=== PATIENT | male | born 1965 | race African-American/Black ===

== ENCOUNTER 2018-11-04 20:03 | Inpatient (IN) ==
[2018-11-04] MEDS ORDERED: VANCOMYCIN INJ 1,000 MG in SODIUM CHLORIDE 0.9% 250 ML IV STA (21:42)
[2018-11-04 22:19] LABS: Basophils % 0.3 % (0.0-0.8); Eosinophils # 0.2 10*3/uL (0.0-0.87); Eosinophils % 3.1 % (0.00-10.9); Hemoglobin 12.5 GM/DL (14.0-18.0); Immature Granulocytes % 0.5 %; Immature Granulocytes Absolute 0.03 #; Lymphocytes # 1.9 10*3/uL (1.4-4.0); Mean Corpuscular HGB Conc 31.3 GM/DL (32-36); Mean Corpuscular Volume 87.5 FL (87-102); Mean Platelet Volume 9.3 FL (9.6-12.0); Monocytes % 15.4 % (1.7-12.7); Neutrophils % 47.7 % (38.7-73.9); Platelet Count 288 T/CUMM (130-400); Red Blood Count 4.57 MC/CUMM (3.8-5.5); Red Cell Distribution Width 13.5 % (9.3-17.3); White Blood Count 5.8 T/CUMM (4-12)
[2018-11-04 22:35] LABS: PT Patient Result 10.8 SECS
[2018-11-04 22:45] LABS: Alanine Aminotransferase 33 U/L (16-61); Albumin 3.7 G/DL (3.4-5.0); Alkaline Phosphatase 112 U/L (45-117); Aspartate Amino Transferase 23 U/L (0-37); Blood Urea Nitrogen 11 MG/DL (7-18); CKMB % 1.5 %; Calcium 8.8 MG/DL (8.5-10.1); Glucose 325 MG/DL (74-106); Osmolality,Calculated 288.5 MOS/KG (273-304); Total Protein 8.2 G/DL (6.4-8.3); Troponin I < 0.015 NG/ML (0.00-0.045)
[2018-11-04 23:02] LABS: Apearance,Urine CLEAR (Clear); Bilirubin,Urine Negative (Negative); Blood, Urine Negative (Negative); Glucose,Urine (UA) >=500 mg/dL (Negative); Ketones,Urine Negative (Negative); Mucus,Urine Occasional /LPF (Occasional); Nitrite,Urine Negative (Negative); Protein,Urine Negative; RBC,Urine 1 /HPF (0-4); Urine Color Yellow (Yellow); Urine Specific Gravity 1.032 (1.001-1.035); Urine Urobilinogen < 2.0 EU/DL (0.2-1.0); WBC,Urine <1 /HPF (0-6)
[2018-11-04 23:19] LABS: Sedimentation Rate-Westergren 38 MM/HR (0-20)
[2018-11-04] MEDS ORDERED: diphenhydrAMINE CAP 25 MG CAPSULE PO PRN (23:42)
[2018-11-04] MEDS ORDERED: DEXTROSE 50% 25 GM/50 ML VIAL IV PRN (23:42)
[2018-11-04] MEDS ORDERED: NICOTINE 21 MG/24 HR PATCH TRANSDERM PRN (23:42)
[2018-11-04] MEDS ORDERED: LACTULOSE 20 GM/30 ML UDCUP PO PRN (23:42)
[2018-11-04] MEDS ORDERED: PROMETHAZINE 25 MG/1 ML VIAL IM PRN (23:42)
[2018-11-04] MEDS ORDERED: GLUCAGON 1 MG VIAL IM PRN (23:42)
[2018-11-04] MEDS ORDERED: ONDANSETRON 4 MG/2 ML VIAL IV PRN (23:42)
[2018-11-04] MEDS ORDERED: MORPHINE 4 MG/1 ML VIAL IV PRN (23:42)
[2018-11-04] MEDS ORDERED: ACETAMINOPHEN 325 MG TABLET PO PRN (23:42)
[2018-11-05] MEDS: SODIUM CHLORIDE 0.9% 1,000 ML IV SCH ×3 (01:23→20:51)
[2018-11-05] MEDS: PIPERACILLIN/TAZOBACTAM 3,375 MG in SODIUM CHLORIDE 0.9% 100 ML IV SCH ×3 (01:23→20:52)
[2018-11-05] MEDS: INSULIN REGULAR 100 UNIT/ML SUBCUT SCH ×4 (01:56→17:39)
[2018-11-05] MEDS ORDERED: LISINOPRIL/HCTZ 20-12.5 MG TABLET PO ONE (02:14)
[2018-11-05 06:02] LABS: Basophils % 0.8 % (0.0-0.8); Eosinophils # 0.2 10*3/uL (0.0-0.87); Eosinophils % 3.3 % (0.00-10.9); Hematocrit 38.9 VOL% (42.0-52.0); Hemoglobin 12.2 GM/DL (14.0-18.0); Immature Granulocytes % 0.4 %; Immature Granulocytes Absolute 0.02 #; Lymphocytes % 40.8 % (21.2-54.2); Mean Corpuscular HGB Conc 31.4 GM/DL (32-36); Mean Platelet Volume 9.5 FL (9.6-12.0); Monocytes % 13.1 % (1.7-12.7); Neutrophils % 41.6 % (38.7-73.9); Platelet Count 272 T/CUMM (130-400); Red Blood Count 4.47 MC/CUMM (3.8-5.5); Red Cell Distribution Width 13.4 % (9.3-17.3); White Blood Count 4.9 T/CUMM (4-12)
[2018-11-05 06:24] LABS: Eosinophils 4 % (0-10); Hypochromasia 1+; Lymphocytes 43 % (20-55); Platelet Estimate Adequate; Segmented Neutrophils 46 % (50-85); Total Cells Counted 100
[2018-11-05 06:32] LABS: Albumin 3.2 G/DL (3.4-5.0); Bilirubin,Total 0.5 MG/DL (0.2-1.0); Calcium 8.4 MG/DL (8.5-10.1); Osmolality,Calculated 283.3 MOS/KG (273-304); Total Protein 7.2 G/DL (6.4-8.3)
[2018-11-05] MEDS: VANCOMYCIN INJ 1,250 MG in SODIUM CHLORIDE 0.9% 250 ML IV SCH ×2 (06:35→17:27)
[2018-11-05] MEDS: INSULIN LISPRO 100 UNIT/ML SUBCUT SCH ×4 (07:54→20:52)
[2018-11-05] MEDS ORDERED: LISINOPRIL/HCTZ 20-12.5 MG TABLET PO SCH ×2 (09:00→21:30)
[2018-11-05] MEDS ORDERED: ENOXAPARIN 40 MG/0.4 ML SYRINGE SUBCUT SCH (09:00)
[2018-11-05] MEDS ORDERED: LIDOCAINE 1% 20 ML VIAL ONE (10:20)
[2018-11-05] MEDS ORDERED: fentaNYL 100 MCG/2 ML VIAL ONE (11:54)
[2018-11-05] MEDS ORDERED: PROPOFOL 200 MG/20 ML VIAL IV ONE (11:54)
[2018-11-05] MEDS ORDERED: MIDAZOLAM 2 MG/2 ML VIAL ONE (11:55)
[2018-11-05] MEDS ORDERED: SODIUM CHLORIDE 0.9% 100 ML IV ONE (11:55)
[2018-11-05] MEDS: PANTOPRAZOLE 40 MG TABLET PO SCH (12:41)
[2018-11-05] MEDS: POTASSIUM CHLORIDE 20 MEQ TABLET PO PRN ×3 (14:05→18:46)
[2018-11-05] MEDS ORDERED: INSULIN GLARGINE 100 UNIT/ML SUBCUT SCH (21:00)
[2018-11-06] MEDS: INSULIN REGULAR 100 UNIT/ML SUBCUT SCH ×3 (00:18→12:17)
[2018-11-06] MEDS: PIPERACILLIN/TAZOBACTAM 3,375 MG in SODIUM CHLORIDE 0.9% 100 ML IV SCH ×2 (04:05→12:17)
[2018-11-06 05:19] LABS: Basophils % 0.8 % (0.0-0.8); Eosinophils # 0.2 10*3/uL (0.0-0.87); Eosinophils % 3.9 % (0.00-10.9); Hematocrit 38.7 VOL% (42.0-52.0); Hemoglobin 12.3 GM/DL (14.0-18.0); Immature Granulocytes % 0.4 %; Immature Granulocytes Absolute 0.02 #; Lymphocytes # 2.3 10*3/uL (1.4-4.0); Lymphocytes % 43.8 % (21.2-54.2); Mean Corpuscular HGB Conc 31.8 GM/DL (32-36); Mean Corpuscular Volume 86.8 FL (87-102); Mean Platelet Volume 9.5 FL (9.6-12.0); Monocytes % 11.2 % (1.7-12.7); Neutrophils % 39.9 % (38.7-73.9); Platelet Count 293 T/CUMM (130-400); Red Blood Count 4.46 MC/CUMM (3.8-5.5); Red Cell Distribution Width 13.6 % (9.3-17.3); White Blood Count 5.2 T/CUMM (4-12)
[2018-11-06 05:42] LABS: Hypochromasia 1+; Platelet Estimate Adequate
[2018-11-06 05:55] LABS: Osmolality,Calculated 282.3 MOS/KG (273-304)
[2018-11-06] MEDS ORDERED: SODIUM HYPOCHLORITE 0.25% IRRIG 473 ML BOTTLE TOP SCH (10:30)
[2018-11-06 11:35] VITALS: BP 165/99
[2018-11-06] MEDS: PANTOPRAZOLE 40 MG TABLET PO SCH (12:16)
[2018-11-06] MEDS: INSULIN LISPRO 100 UNIT/ML SUBCUT SCH (12:16)
[2018-11-06] MEDS: SODIUM CHLORIDE 0.9% 1,000 ML IV SCH (12:16)
[2018-11-06] MEDS: VANCOMYCIN INJ 1,250 MG in SODIUM CHLORIDE 0.9% 250 ML IV SCH (12:16)
== END 2018-11-06 13:30 | disposition home or self-care (01) | DRG 464 ==
LOC: N.ED 20:03 → N.EDINP 23:42 → N.2E 11-05 00:50 → N.3E 11-06 02:15
PROVIDERS: ADMIT Internal Medicine Cardiovascular Disease; ATTEND Internal Medicine Cardiovascular Disease

== ENCOUNTER 2020-07-19 18:58 | Inpatient (IN) ==
[2020-07-19] MEDS ORDERED: SODIUM CHLORIDE 0.9% 1,000 ML IV STA (19:44)
[2020-07-19] MEDS ORDERED: PIPERACILLIN/TAZOBACTAM 3,375 MG in SODIUM CHLORIDE 0.9% 100 ML IV STA (19:44)
[2020-07-19] MEDS ORDERED: ONDANSETRON 4 MG/2 ML VIAL IV STA (19:44)
[2020-07-19] MEDS ORDERED: MORPHINE 4 MG/1 ML VIAL IV ONE (19:44)
[2020-07-19 20:53] LABS: Basophils % 0.1 % (0.0-0.8); Eosinophils # 0.1 10*3/uL (0.0-0.87); Hematocrit 38.2 VOL% (42.0-52.0); Hemoglobin 12.3 GM/DL (14.0-18.0); Immature Granulocytes % 0.3 %; Immature Granulocytes Absolute 0.03 #; Lymphocytes # 1.1 10*3/uL (1.4-4.0); Lymphocytes % 11.9 % (21.2-54.2); Mean Corpuscular HGB Conc 32.2 GM/DL (32-36); Mean Corpuscular Volume 83.6 FL (87-102); Monocytes % 9.8 % (1.7-12.7); Neutrophils % 76.9 % (38.7-73.9); Platelet Count 342 T/CUMM (130-400); Red Blood Count 4.57 MC/CUMM (3.8-5.5); Red Cell Distribution Width 14.3 % (9.3-17.3); White Blood Count 9.2 T/CUMM (4-12)
[2020-07-19 21:11] LABS: Calcium 8.9 MG/DL (8.5-10.1); Osmolality,Calculated 278.8 MOS/KG (273-304); Potassium 3.8 MMOL/L (3.5-5.1)
[2020-07-19] MEDS ORDERED: DEXTROSE 50% 25 GM/50 ML VIAL IV PRN ×2 (22:23)
[2020-07-19] MEDS ORDERED: GLUCAGON 1 MG VIAL IM PRN ×2 (22:23)
[2020-07-19] MEDS ORDERED: ONDANSETRON 4 MG/2 ML VIAL IV PRN (22:23)
[2020-07-20] MEDS: PIPERACILLIN/TAZOBACTAM 3,375 MG in SODIUM CHLORIDE 0.9% 100 ML IV SCH ×3 (04:16→15:39)
[2020-07-20] MEDS: MORPHINE 4 MG/1 ML VIAL IV PRN ×2 (06:25→15:12)
[2020-07-20] MEDS ORDERED: BUPIVACAINE MPF 0.25% 30 ML VIAL ONE (06:28)
[2020-07-20] MEDS ORDERED: LIDOCAINE 1% 20 ML VIAL ONE (06:28)
[2020-07-20] MEDS ORDERED: DEXMEDETOMIDINE 200 MCG/2 ML VIAL ONE (06:54)
[2020-07-20] MEDS ORDERED: ceFAZolin 1,000 MG in SYRINGE 1 EACH IV ONE (07:07)
[2020-07-20] MEDS: INSULIN REGULAR 100 UNIT/ML SUBCUT SCH ×4 (07:42→21:46)
[2020-07-20 07:44] LABS: Basophils % 0.4 % (0.0-0.8); Eosinophils # 0.1 10*3/uL (0.0-0.87); Eosinophils % 0.7 % (0.00-10.9); Hematocrit 34.3 VOL% (42.0-52.0); Hemoglobin 10.8 GM/DL (14.0-18.0); Immature Granulocytes % 0.2 %; Immature Granulocytes Absolute 0.02 #; Lymphocytes # 1.7 10*3/uL (1.4-4.0); Lymphocytes % 20.7 % (21.2-54.2); Mean Corpuscular HGB Conc 31.5 GM/DL (32-36); Mean Corpuscular Volume 84.7 FL (87-102); Mean Platelet Volume 8.7 FL (9.6-12.0); Monocytes % 13.1 % (1.7-12.7); Neutrophils % 64.9 % (38.7-73.9); Platelet Count 287 T/CUMM (130-400); Red Blood Count 4.05 MC/CUMM (3.8-5.5); Red Cell Distribution Width 14.5 % (9.3-17.3); White Blood Count 8.4 T/CUMM (4-12)
[2020-07-20 07:58] LABS: Calcium 8.2 MG/DL (8.5-10.1); Osmolality,Calculated 279.4 MOS/KG (273-304); Potassium 3.5 MMOL/L (3.5-5.1)
[2020-07-20] MEDS ORDERED: KETAMINE 500 MG/10 ML VIAL ONE (08:03)
[2020-07-20] MEDS ORDERED: fentaNYL 100 MCG/2 ML VIAL ONE (08:05)
[2020-07-20] MEDS ORDERED: ONDANSETRON 4 MG/2 ML VIAL IV PRN (09:09)
[2020-07-20] MEDS: VANCOMYCIN INJ 1,500 MG in SODIUM CHLORIDE 0.9% 500 ML IV SCH ×2 (10:41→22:38)
[2020-07-20] MEDS: PANTOPRAZOLE 40 MG TABLET PO SCH (11:09)
[2020-07-20] MEDS ORDERED: HYDROmorphone 2 MG/1 ML VIAL IV PRN ×2 (15:57→16:41)
[2020-07-20] MEDS: ENOXAPARIN 40 MG/0.4 ML SYRINGE SUBCUT SCH (17:00)
[2020-07-20] MEDS: METOPROLOL TARTRATE 50 MG TABLET PO SCH (21:45)
[2020-07-20] MEDS: glipiZIDE 5 MG TABLET PO SCH (21:45)
[2020-07-20] MEDS: GABAPENTIN 600 MG TABLET PO SCH (21:45)
[2020-07-20] MEDS: metFORMIN 500 MG TABLET PO SCH (21:45)
[2020-07-21] MEDS: PIPERACILLIN/TAZOBACTAM 3,375 MG in SODIUM CHLORIDE 0.9% 100 ML IV SCH ×2 (03:23→15:19)
[2020-07-21 05:25] LABS: Basophils % 0.6 % (0.0-0.8); Eosinophils # 0.1 10*3/uL (0.0-0.87); Eosinophils % 1.7 % (0.00-10.9); Hematocrit 33.6 VOL% (42.0-52.0); Hemoglobin 10.7 GM/DL (14.0-18.0); Immature Granulocytes % 0.4 %; Immature Granulocytes Absolute 0.03 #; Lymphocytes # 1.9 10*3/uL (1.4-4.0); Lymphocytes % 27.6 % (21.2-54.2); Mean Corpuscular HGB Conc 31.8 GM/DL (32-36); Mean Corpuscular Volume 83.4 FL (87-102); Monocytes % 12.5 % (1.7-12.7); Neutrophils % 57.2 % (38.7-73.9); Platelet Count 312 T/CUMM (130-400); Red Blood Count 4.03 MC/CUMM (3.8-5.5); Red Cell Distribution Width 14.5 % (9.3-17.3)
[2020-07-21 05:48] LABS: Albumin 2.6 G/DL (3.4-5.0); Bilirubin,Total 0.7 MG/DL (0.2-1.0); Calcium 8.4 MG/DL (8.5-10.1); Osmolality,Calculated 283.1 MOS/KG (273-304); Potassium 3.4 MMOL/L (3.5-5.1); Risk Ratio 2.81; Total Protein 7.1 G/DL (6.4-8.2); VLDL CHOLESTEROL 21.8 MG/DL
[2020-07-21] MEDS: INSULIN REGULAR 100 UNIT/ML SUBCUT SCH ×4 (08:41→20:36)
[2020-07-21] MEDS: PANTOPRAZOLE 40 MG TABLET PO SCH (09:04)
[2020-07-21] MEDS: lisinopriL 20 MG TABLET PO SCH (09:04)
[2020-07-21] MEDS: METOPROLOL TARTRATE 50 MG TABLET PO SCH ×2 (09:05→20:34)
[2020-07-21] MEDS: GABAPENTIN 600 MG TABLET PO SCH ×2 (09:05→20:35)
[2020-07-21] MEDS: metFORMIN 500 MG TABLET PO SCH ×2 (09:05→20:35)
[2020-07-21] MEDS: amLODIPine 10 MG TABLET PO SCH (09:05)
[2020-07-21] MEDS: sitaGLIPtin 25 MG TABLET PO SCH (09:05)
[2020-07-21] MEDS: DULoxetine 30 MG CAPSULE PO SCH (09:05)
[2020-07-21] MEDS: glipiZIDE 5 MG TABLET PO SCH ×2 (10:18→20:35)
[2020-07-21] MEDS: VANCOMYCIN INJ 1,500 MG in SODIUM CHLORIDE 0.9% 500 ML IV SCH ×2 (10:18→22:29)
[2020-07-21] MEDS: ENOXAPARIN 40 MG/0.4 ML SYRINGE SUBCUT SCH (16:57)
[2020-07-22] MEDS: PIPERACILLIN/TAZOBACTAM 3,375 MG in SODIUM CHLORIDE 0.9% 100 ML IV SCH ×3 (00:56→17:28)
[2020-07-22] MEDS: INSULIN REGULAR 100 UNIT/ML SUBCUT SCH ×4 (07:30→20:10)
[2020-07-22] MEDS: DULoxetine 30 MG CAPSULE PO SCH (09:32)
[2020-07-22] MEDS: PANTOPRAZOLE 40 MG TABLET PO SCH (09:33)
[2020-07-22] MEDS: lisinopriL 20 MG TABLET PO SCH (09:33)
[2020-07-22] MEDS: METOPROLOL TARTRATE 50 MG TABLET PO SCH ×2 (09:33→20:45)
[2020-07-22] MEDS: metFORMIN 500 MG TABLET PO SCH ×2 (09:33→20:46)
[2020-07-22] MEDS: glipiZIDE 5 MG TABLET PO SCH ×2 (09:33→20:45)
[2020-07-22] MEDS: GABAPENTIN 600 MG TABLET PO SCH ×2 (09:33→20:45)
[2020-07-22] MEDS: sitaGLIPtin 25 MG TABLET PO SCH (09:33)
[2020-07-22] MEDS: amLODIPine 10 MG TABLET PO SCH (09:33)
[2020-07-22] MEDS: VANCOMYCIN INJ 1,500 MG in SODIUM CHLORIDE 0.9% 500 ML IV SCH ×2 (11:22→22:40)
[2020-07-22] MEDS: ENOXAPARIN 40 MG/0.4 ML SYRINGE SUBCUT SCH (17:29)
[2020-07-23] MEDS: PIPERACILLIN/TAZOBACTAM 3,375 MG in SODIUM CHLORIDE 0.9% 100 ML IV SCH ×3 (02:09→17:14)
[2020-07-23 06:28] LABS: Basophils % 0.8 % (0.0-0.8); Eosinophils # 0.2 10*3/uL (0.0-0.87); Hematocrit 39.7 VOL% (42.0-52.0); Hemoglobin 12.1 GM/DL (14.0-18.0); Immature Granulocytes % 0.6 %; Immature Granulocytes Absolute 0.03 #; Lymphocytes # 1.9 10*3/uL (1.4-4.0); Lymphocytes % 38.3 % (21.2-54.2); Mean Corpuscular HGB Conc 30.5 GM/DL (32-36); Mean Corpuscular Volume 86.9 FL (87-102); Mean Platelet Volume 10.1 FL (9.6-12.0); Monocytes % 11.5 % (1.7-12.7); Neutrophils % 45.8 % (38.7-73.9); Platelet Count 245 T/CUMM (130-400); Red Blood Count 4.57 MC/CUMM (3.8-5.5); Red Cell Distribution Width 14.6 % (9.3-17.3)
[2020-07-23 06:49] LABS: Calcium 9.1 MG/DL (8.5-10.1); Potassium 4.2 MMOL/L (3.5-5.1)
[2020-07-23] MEDS: INSULIN REGULAR 100 UNIT/ML SUBCUT SCH ×4 (07:50→20:17)
[2020-07-23 08:11] LABS: Burr Cells Few; Platelet Estimate Normal
[2020-07-23] MEDS: METOPROLOL TARTRATE 50 MG TABLET PO SCH ×2 (09:07→21:41)
[2020-07-23] MEDS: glipiZIDE 5 MG TABLET PO SCH ×2 (09:07→21:41)
[2020-07-23] MEDS: lisinopriL 20 MG TABLET PO SCH (09:07)
[2020-07-23] MEDS: amLODIPine 10 MG TABLET PO SCH (09:07)
[2020-07-23] MEDS: metFORMIN 500 MG TABLET PO SCH ×2 (09:07→21:41)
[2020-07-23] MEDS: sitaGLIPtin 25 MG TABLET PO SCH (09:07)
[2020-07-23] MEDS: GABAPENTIN 600 MG TABLET PO SCH ×2 (09:07→21:41)
[2020-07-23] MEDS: DULoxetine 30 MG CAPSULE PO SCH (09:07)
[2020-07-23] MEDS: PANTOPRAZOLE 40 MG TABLET PO SCH (09:07)
[2020-07-23] MEDS: VANCOMYCIN INJ 1,500 MG in SODIUM CHLORIDE 0.9% 500 ML IV SCH ×2 (09:11→21:41)
[2020-07-23] MEDS: ENOXAPARIN 40 MG/0.4 ML SYRINGE SUBCUT SCH (17:14)
[2020-07-24] MEDS: PIPERACILLIN/TAZOBACTAM 3,375 MG in SODIUM CHLORIDE 0.9% 100 ML IV SCH ×3 (01:18→17:32)
[2020-07-24] MEDS: DULoxetine 30 MG CAPSULE PO SCH (09:39)
[2020-07-24] MEDS: metFORMIN 500 MG TABLET PO SCH ×2 (09:40→20:24)
[2020-07-24] MEDS: sitaGLIPtin 25 MG TABLET PO SCH (09:40)
[2020-07-24] MEDS: GABAPENTIN 600 MG TABLET PO SCH ×2 (09:40→20:23)
[2020-07-24] MEDS: lisinopriL 20 MG TABLET PO SCH (09:40)
[2020-07-24] MEDS: PANTOPRAZOLE 40 MG TABLET PO SCH (09:40)
[2020-07-24] MEDS: amLODIPine 10 MG TABLET PO SCH (09:40)
[2020-07-24] MEDS: METOPROLOL TARTRATE 50 MG TABLET PO SCH ×2 (09:40→20:23)
[2020-07-24] MEDS: INSULIN REGULAR 100 UNIT/ML SUBCUT SCH ×4 (09:41→20:05)
[2020-07-24] MEDS: glipiZIDE 5 MG TABLET PO SCH ×2 (09:42→20:24)
[2020-07-24] MEDS: VANCOMYCIN INJ 1,500 MG in SODIUM CHLORIDE 0.9% 500 ML IV SCH ×2 (10:50→21:28)
[2020-07-24] MEDS: ENOXAPARIN 40 MG/0.4 ML SYRINGE SUBCUT SCH (17:32)
[2020-07-25] MEDS: PIPERACILLIN/TAZOBACTAM 3,375 MG in SODIUM CHLORIDE 0.9% 100 ML IV SCH ×2 (00:34→09:42)
[2020-07-25 05:33] LABS: Basophils % 0.7 % (0.0-0.8); Eosinophils # 0.2 10*3/uL (0.0-0.87); Eosinophils % 3.6 % (0.00-10.9); Hematocrit 39.4 VOL% (42.0-52.0); Hemoglobin 12.5 GM/DL (14.0-18.0); Immature Granulocytes % 0.3 %; Immature Granulocytes Absolute 0.02 #; Mean Corpuscular HGB Conc 31.7 GM/DL (32-36); Mean Corpuscular Volume 83.1 FL (87-102); Mean Platelet Volume 8.7 FL (9.6-12.0); Monocytes % 11.9 % (1.7-12.7); Neutrophils % 49.5 % (38.7-73.9); Platelet Count 397 T/CUMM (130-400); Red Blood Count 4.74 MC/CUMM (3.8-5.5); Red Cell Distribution Width 14.2 % (9.3-17.3); White Blood Count 5.8 T/CUMM (4-12)
[2020-07-25 06:06] LABS: Calcium 9.2 MG/DL (8.5-10.1); Osmolality,Calculated 272.7 MOS/KG (273-304); Potassium 3.9 MMOL/L (3.5-5.1)
[2020-07-25] MEDS: INSULIN REGULAR 100 UNIT/ML SUBCUT SCH ×2 (08:16→11:21)
[2020-07-25] MEDS: PANTOPRAZOLE 40 MG TABLET PO SCH (09:40)
[2020-07-25] MEDS: sitaGLIPtin 25 MG TABLET PO SCH (09:40)
[2020-07-25] MEDS: glipiZIDE 5 MG TABLET PO SCH (09:40)
[2020-07-25] MEDS: amLODIPine 10 MG TABLET PO SCH (09:41)
[2020-07-25] MEDS: lisinopriL 20 MG TABLET PO SCH (09:41)
[2020-07-25] MEDS: METOPROLOL TARTRATE 50 MG TABLET PO SCH (09:41)
[2020-07-25] MEDS: DULoxetine 30 MG CAPSULE PO SCH (09:41)
[2020-07-25] MEDS: metFORMIN 500 MG TABLET PO SCH (09:41)
[2020-07-25] MEDS: VANCOMYCIN INJ 1,500 MG in SODIUM CHLORIDE 0.9% 500 ML IV SCH (10:00)
[2020-07-25] MEDS: GABAPENTIN 600 MG TABLET PO SCH (10:07)
[2020-07-25 11:27] VITALS: BP 127/87
== END 2020-07-25 14:45 | disposition home health service (06) | DRG 951 ==
LOC: N.ED 18:58 → N.EDINP 22:23 → SUATTDRO 22:23 → N.3E 07-20 00:11
PROVIDERS: ADMIT Internal Medicine; ATTEND Internal Medicine